=== PATIENT | female | born 1940 | race Caucasian/White ===

== ENCOUNTER 2016-08-15 06:31 | Inpatient (IN) ==
--- NOTE | 2016-08-14 21:17 | Discharge Summary ---
<Alka Pak - Last Filed: 08/15/16 13:52> - Discharge Diagnosis (1) Arthralgia of knee, left Priority: Primary Status: Acute (2) KEVIN (obstructive sleep apnea) Status: Chronic - Discharge Medications Home Medications: Aspirin Enteric Coated [Aspirin EC] 325 mg PO DAILY #21 tablet. 08/14/16 [Rx] OxyCODONE Immed Rel [Roxicodone 5 MG] 5 - 10 mg PO Q6HR PRN #40 tablet 08/14/16 [Rx] Pantoprazole Sodium [Protonix] 40 mg PO HS 08/15/16 [History] Allergies/Adverse Reactions: Allergies No Known Allergies Allergy (Verified 08/15/16 07:09) Primary care physician: Keyon Hanks Jr, MD - Patient Status Disposition: Transfer Inpatient Rehab Fac Condition: Good - Discharge Instructions Follow Up With: Alka Pak PAC [Physician Research/Program Director] - 08/25/16 10:30 am Keyon Hanks Jr, MD [Primary Care Provider] - Additional Instructions: Discharge Instructions: Total Knee Replacement Please call [facility] ([phone]), your Primary Care Physician, or report to the Emergency Room if you have any of the following symptoms: Nausea, vomiting, fever greater that 101.5, swelling, chest pain, shortness of breath, increased pain/redness/drainage/odor for your incision site, numbness/ tingling, or any other concerning symptoms. ACTIVITY:Weight-bearing as tolerated. You may progress off support (cruthches or walker) as tolerated. MEDICATIONS: Upon discharge resume your home medications. Take all the medications as prescribed. Take a stool softener if taking narcotic pain medications. Stool softeners are only effective if you drink enough fluids. Drink 6-8 glass of water or fluids a day, unless this is not allowed for another health problem. Despite using stool softeners, if you haven't had a bowel movement in 3 days, please switch to a gentle laxative. Gentle laxatives are sold over the counter. You should have a bowel movement within 24 hours, if not call the office. You will be discharged from the hospital with a prescription for pain medication. You are encouraged to decrease the use of narcotic pain medication as tolerated. Should you require a refill, please call the office. [facility] prescribes narcotic pain medication for only 4-6 weeks after surgery. If you require pain medication beyond this time periord, you may be referred to your Primary Care Physician or to the Pain Clinic for further evaluation. Plan ahead for refills on pain medication as many narcotics either need to be picked up at the office or mailed. It is best to call 48-72 hours in advance of needing a prescription refill so you don't run out of medication. To help control the post-operative pain, you may take NSAIDs (Aleve,Advil, Motrin, ibuprofen, naprosyn) or Tylenol as prescribed on the bottle in addition to the pain medication. ANTICOAGULATION (blood thinners): Continue your Aspirin, Lovenox or Coumadin as prescribed to help prevent a blood clot in the leg or in the lungs. As long as your incision remains dry and you tolerate the NSAIDs (Aleve, Advil, Motrin, ibuprofen, naprosyn), it is OK to use the NSAIDS while you are taking your anticoagulation medication. Should your incision start to drain, stop the NSAID and contact our office. Common symptoms of blood clot in the legs include: localized pain, swelling, calf tenderness, redness or discoloration of the skin. Blood clot in the lung symptoms include: shortness of breath, rapid pulse, sweating, and chest pain that worsens with deep breathing, coughing up blood, lightheadedness, feelings of anxiety. If you experience any of these symptoms notify your physician immediately, go to the emergency room, or if having trouble breathing, call 911. WOUND CARE: Leave the dressing on for 7 days. You may change the dressing if it becomes saturated greater than 50%. You can shower but not a tub bath or submerge your incision in water. Wash your hands with antibacterial soap, rinse and dry prior to any wound care. If you have miguel the visiting nurse or rehab facility can remove the stapes 10-14 days [address] surgery [address] steri- strips across the wound. Leave the steri-strips in place until they fall off on their won. You may let water from the shower run on top of the steri-stirips. If you do not have a visiting nurse or rehab facility, you will need to return to the office at 10-14 days for the miguel to be removed. FOLLOW-UP: Please follow up with your surgeon in the orthopedic clinic in 4 weeks from the day of surgery. If you have miguel that need to be removed, you will need to come back to the office in 10-14 days from the day of surgery. - Hospital Course Hospital course: Ms. Gaviria is a 75 year old female - Time Spent with Patient Total time spent providing and/or coordinating discharge services: <Delfino Church - Last Filed: 08/17/16 09:16> Date of Encounter: 08/17/16 Time of Encounter: 09:15 - Discharge Diagnosis (1) KEVIN (obstructive sleep apnea) Priority: Secondary Status: Chronic (2) Arthralgia of knee, left Priority: Primary Status: Acute Primary care physician: Keyon Hanks Jr, MD - Patient Status Functional capacity at discharge: uses cane/walker Overall status at discharge: patient is progressing back to baseline - Hospital Course Hospital course: Ms. Gaviria is a 75 year old female The patient had an uneventful postoperative course. They received antibiotics and physical therapy and were discharged in stable condition. There will follow -up in the office in 2 weeks. Aspirin DVT prophylaxis - Time Spent with Patient Total time spent providing and/or coordinating discharge services:
--- NOTE | 2016-08-15 06:41 | History & Physical Report ---
Date of Encounter: 08/15/16 Time of Encounter: 06:41 24 Hour HP Update - Instructions Instructions: If the History and Physical is less than 30 days old and was completed prior to A.M. admission and or procedure and has NOT been updated on calendar day of procedure please complete this update prior to performing procedure. - Update Patient reports changes in Medical Condition: No Changes in assessment/condition: No Changes in Medication: No Preop tests/diagnostics Reviewed: Yes Surgery Remains Indicated: Yes Consent for Planned Operative Procedure(s) Verified: Yes - Pre-Operative Checklist Preoperative Checklist Indicated: No Prophylactic Antibiotic Ordered: Yes Is VTE Prophylaxis Indicated?: Yes
[2016-08-15] MEDS ORDERED: CeFAZolin Pre 2,000 MG/100 ML 2,000 MG/100 ML BAG IVPB ONE (07:02)
[2016-08-15] MEDS ORDERED: *HR* Magnesium Sulfate 2 GM/50 ML PIGGYBACK IVPB ONE (07:07)
--- NOTE | 2016-08-15 07:14 | Anesthesia Evaluation PreOp ---
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 08/14/16 [Rx] OxyCODONE Immed Rel [Roxicodone 5 MG] 5 - 10 mg PO Q6HR PRN #40 tablet 08/14/16 [Rx] Pantoprazole Sodium [Protonix] 40 mg PO HS 08/15/16 [History] Allergies No Known Allergies Allergy (Verified 08/15/16 07:09) - Meds/Allergy Pre-op Review Medications Reviewed: Yes Allergies Reviewed: Yes Beta Blockers on Current Med List: No Anesthesia Results - Labs Laboratory Tests 08/10/16 08/10/16 08/10/16 10:49 10:49 10:49 Hgb 13.6 Hct 40.8 Plt Count 240 PT 11.0 INR 1.0 APTT 26.8 Sodium 140 Potassium 4.2 Creatinine 0.71 - Imaging EKG: pending Anesthesia Exam O2 Sat Height 1.7 m Height 1.7 m Weight 80.286 kg Weight 80.286 kg O2 Sat by Pulse Oximetry 98 Vital Signs Temp Pulse Resp BP Pulse Ox 97.9 F 73 18 136/79 98 08/15/16 06:59 08/15/16 06:59 08/15/16 06:59 08/15/16 06:59 08/15/16 06:59 Height: 1.7 Weight: 81 NPO (# of Hours): >8 - HEENT Pupil (Motor): Pupils equal, EOMI Mallampati: I Teeth: Normal Oral Opening: Greater than 3 - BOILER COVERER HELPER LOC: Oriented BOILER COVERER HELPER Motor: Normal RUE, Normal LUE, Normal RLE, Normal LLE, Normal Face BOILER COVERER HELPER Sensory: Normal: RUE, LUE, RLE, LLE, Face - Cardiac Rhythm: Regular Murmur: None - Pulmonary Breath Sounds: bilateral Clear Respiratory Effort: Symmetrical Anesthesia Assess/Plan ASA Score: 3 (age >70) Modified [place] Scale for Level of Consciousness: Cooperative, oriented, and tranquil Anesthetic Plan: General, Regional Monitoring Plan: Standard Monitors Recovery Plan: PACU
[2016-08-15] MEDS ORDERED: Ringers Solution, Lactated 1,000 ML IVC SCH ×3 (07:15→11:08)
[2016-08-15] MEDS ORDERED: CloNIDine Patch 0.1 MG PATCH (WEEKLY) TD SCH (07:15)
[2016-08-15] MEDS ORDERED: Tetracaine/PF 20 MG/2 ML AMPUL SPINA ONE (07:58)
[2016-08-15] MEDS ORDERED: ROPIVACAINE HCL/PF 0.5% 30 ML VIAL ONE (07:58)
[2016-08-15] MEDS ORDERED: *HR* Propofol 200 MG/20 ML VIAL IVP ONE (08:50)
[2016-08-15] MEDS ORDERED: *HR* FentaNYL (PF) 100 MCG/2 ML VIAL ONE (08:50)
[2016-08-15] MEDS ORDERED: *HR* Midazolam HCl 2 MG/2 ML VIAL ONE (08:50)
[2016-08-15] MEDS ORDERED: Lidocaine -MPF 2% 2 ML VIAL ONE (08:50)
[2016-08-15] MEDS ORDERED: *HR* Morphine 2 MG/ML SYRINGE IVP PRN (08:52)
[2016-08-15] MEDS ORDERED: *HR* HYDROmorphone (PF) 1 MG/ML SYRINGE IVP PRN ×2 (08:52→11:08)
--- NOTE | 2016-08-15 08:56 | Anesthesia Procedures ---
Date of Encounter: 08/15/16 Time of Encounter: 08:54 Procedures: Anesthesia - Nerve Block Procedure Date: 08/15/16 Time: 08:02 Allergies/Adv Reactions: NKA Pre-op Diagnosis: left knee arthritis Surgical Procedure: Left total knee arthroplasty Checklist: Correct Patient Identifier, Correct procedure, History checked Correct side: Left Blood Thinner: No Monitor Applied: EKG, BP, Pulse Oximetry Supplemental Oxygen via Nasal Cannula (L/min): 2 Sedation: Versed (mg): 2 Sedation: Fentanyl (mcg): 50 Indication: Post Op Analgesia Pre-op Neuro Deficits: No Block Type: Femoral Catheter placed: No Sterile Technique: Yes Ultrasound used: Yes Anatomy identified: Yes Visual spread of Local: Yes Neuro Stimulation: Yes Nerve Stimulator Range: 0.2 - 0.4 mA Blood on Needle Aspiration: No Smooth Injection of Local: Yes Pain with Injection of Local: No Prep: Chlorhexadine Needle: 22 x 50 mm Stimuplex Local: Tetracaine (20mg), Ropivacaine Volume (cc): 30 Number of Attempts: 1 Complications: None/effective block Vitals: Vital Signs Temperature 97.9 F 08/15/16 06:59 Pulse Rate 73 08/15/16 06:59 Respiratory Rate 18 08/15/16 06:59 Blood Pressure 136/79 08/15/16 06:59 O2 Sat by Pulse Oximetry 98 08/15/16 06:59 Temperature 97.9 F 08/15/16 07:19 Pulse Rate 57 08/15/16 08:25 Respiratory Rate 18 08/15/16 07:19 Blood Pressure 112/57 08/15/16 08:25 O2 Sat by Pulse Oximetry 97 08/15/16 08:25 Comments: Block ordered per dr. martins for postoperative pain relief. VSS throughout.
[2016-08-15] MEDS ORDERED: *HR* Morphine 10 MG/ML VIAL ONE (09:13)
[2016-08-15] MEDS ORDERED: Ondansetron 4 MG/2 ML VIAL ONE (09:14)
[2016-08-15] MEDS ORDERED: Dexamethasone 4 MG/ML VIAL ONE (09:14)
--- NOTE | 2016-08-15 09:15 | Orthopedic Operative Note ---
Date of procedure: 08/15/16 Pre-op diagnosis: Left knee arthritis/instability Post-op diagnosis: same Procedure: Procedure: Left Total knee replacement Estimated blood loss: 200 cc Hardware: Arthrex Femur: 8 Tibia: 6 PS insert: 12 Patella: 37 Exam Under anesthesia: Significant valgus deformity, significant varus valgus instability, possible extension 10 degrees. Procedural Notes: Grade 4 arthritic changes lateral compartment medial compartment grade 3 patellofemoral joint Operative procedure: The patient was brought to the operating room and placed on the operating room table. After general anesthesia was administered the operative knee was examined. Findings were noted in the exam under anesthesia. The operative extremity was prepped and draped in sterile surgical fashion. The patient received IV antibiotics prior to skin incision. A standard midline incision was made centered over the patella. The incision was made through the skin and subcutaneous tissue. A medial parapatellar tendon approach was performed. Care was taken to preserve tissue along the medial aspect of the patella. And to protect the patella tendon. The deep MCL was released off the medial tibia. The infra patella fat pad was excised. Knee was brought into flexion. Patient noted to have grade 4 arthritic changes medial and lateral compartments and grade 3 arthritic changes patellofemoral joint The entry hole was made for the intramedullary femoral guide. The guide was seated in 6 degrees of valgus. Anterior cut was made followed by the distal cut. The ACL the PCL the medial and the lateral menisci were excised. The tibia was subluxed forward. The entry hole was made for the intramedullary tibial guide. Guide was seated to resect 2 mm off the more abnormal side. The knee was brought into flexion the distal femur was sized to an 8. The femoral guide was seated, the anterior cut was made followed by the posterior condylar cut, followed by the chamfer cuts. The finishing guide was seated the box cut was made and the lug holes were drilled. The tibia was sized to a 6, the tibial tray was seated and prepared with the large drill followed by the fin cutter. Trial reduction revealed full extension no varus valgus instability with the appropriate 12 PS Latonya. The patella was everted and cut was made at the level of the insertion of the quadriceps and patella tendon. The patella was sized to a 37 the guide was seated and the lug holes are drilled. Trial reduction revealed excellent patella tracking. All trial components were removed all bony surfaces were irrigated. The tibia was cemented first followed by the femur. The 12 PS Latonya was seated and the knee was brought into full extension. The patella was cemented and held in place with the patellar holding clamp. After the cement had hardened, the knee sat for 2 minutes with a Betadine saline solution. The knee was then irrigated out with 2 L of pulse irrigation. The extensor mechanism was closed with #2 FiberWire suture and #2 PDS suture. The subcutaneous tissue was then irrigated and closed deep with #1 PDS suture superficially with 0 PDS suture and skin was closed with skin miguel and Dermabond. The patient was then placed in a sterile dressing and a postoperative brace extubated and transferred to recovery room in stable condition. Anesthesia: NEFTALI Surgeon: Delfino Church Saw Repairer: Alka Pak Condition: stable Disposition: PACU
[2016-08-15 10:23] LABS: Hematocrit 37.3 % (35.3-44.9); Hemoglobin 12.4 g/dL (11.5-15.4)
--- NOTE | 2016-08-15 10:28 | Electrocardiograph Report ---
[facility] Test Date: 2016-08-15 Pat Name: SIL SANTOS Department: 106 Room: Gender: F Genetic Coordinator: [facility] : 1940 Requested By: Delfino Church Order Number: [id number] Reading MD: Ari Stanford DO Measurements Intervals [employer] Rate: 58 P: 68 AK: 147 QRS: -12 QRSD: 90 T: 42 QT: 406 QTc: 402 Interpretive Statements SINUS BRADYCARDIA Electronically Signed On 08-15-16 10:26:58 EST by Ari Stanford DO
--- NOTE | 2016-08-15 10:29 | Anesthesia Evaluation Post Op ---
Date of Encounter: 08/15/16 Time of Encounter: 10:28 - Vital Signs Vital Signs: Vital Signs/O2 Sat, Most Current Temp Pulse Resp BP Pulse Ox 98.0 F 53 14 118/56 98 08/15/16 09:45 08/15/16 10:05 08/15/16 10:05 08/15/16 10:05 08/15/16 10:05 - Lungs Lungs: Clear Ascult./Percussion - Airway Airway: Non-obstructed - Cardiovascular Regular Rate - Mental Status Mental Status: Alert & Oriented, Answers Appropriately - Pain Pain Scale: 9 Pain Scale used: Numeric (1 - 10) - Nausea Vomiting Nausea Vomiting: Present (c/o nausea but does not correlate with body language and patient was able to tolerate ice chips) - Hydration Hydration: Ice chips, Has not voided - Discharge PostOp Status: Transfer Patient to floor
[2016-08-15] MEDS ORDERED: Naloxone 0.4 MG/ML INJ IVP PRN (11:08)
[2016-08-15] MEDS ORDERED: Sennosides 8.6 MG TABLET PO PRN (11:08)
[2016-08-15] MEDS ORDERED: MOM Conc 10 ML UD.LIQ PO PRN (11:08)
[2016-08-15] MEDS ORDERED: Acetaminophen 325 MG TABLET PO PRN (11:08)
[2016-08-15] MEDS ORDERED: *HR* OxyCODONE Immed Rel 5 MG TABLET PO PRN (11:08)
[2016-08-15] MEDS ORDERED: Temazepam 15 MG CAPSULE PO PRN (11:08)
[2016-08-15] MEDS: Ondansetron 4 MG/2 ML VIAL IVP PRN (11:18)
[2016-08-15] MEDS: *HR* OxyCODONE Immed Rel 5 MG TABLET PO PRN ×3 (12:21→21:38)
[2016-08-15] MEDS: *HR* Enoxaparin 30 MG/0.3 ML SYRINGE SQ SCH (16:59)
[2016-08-15] MEDS: ceFAZolin 2,000 MG in D5% in Water 100 ML IVPB SCH (17:00)
[2016-08-15] MEDS ORDERED: *HR* Enoxaparin 30 MG/0.3 ML SYRINGE SQ SCH (18:00)
[2016-08-16] MEDS: ceFAZolin 2,000 MG in D5% in Water 100 ML IVPB SCH (00:03)
[2016-08-16] MEDS: *HR* OxyCODONE Immed Rel 5 MG TABLET PO PRN ×4 (02:32→18:02)
[2016-08-16] MEDS: *HR* Enoxaparin 30 MG/0.3 ML SYRINGE SQ SCH ×2 (05:32→18:03)
[2016-08-16 06:12] LABS: Hematocrit 32.2 % (35.3-44.9)
[2016-08-16 06:30] LABS: BUN/Creatinine Ratio 21 (6-26); Blood Urea Nitrogen 15 mg/dL (7-20); Calcium 8.9 mg/dL (8.6-10.8); Carbon Dioxide 23 mEq/L (19-29); Chloride 105 mEq/L (98-109); Glucose 117 mg/dL (70-99); Osmolality,Calculated 284 (280-300); Potassium 4.3 mEq/L (3.5-4.5); Sodium 136 mEq/L (136-145); eGFR For African Americans > 60 (> 60); eGFR For Non-African Americans > 60 (> 60)
--- NOTE | 2016-08-16 06:56 | Orthopedics Progress Note ---
Date of Encounter: 08/16/16 Time of Encounter: 06:56 - Assessment and Plan (1) KEVIN (obstructive sleep apnea) Current Visit: Yes Status: Chronic (2) Arthralgia of knee, left Current Visit: Yes Status: Acute Subjective Interval history: Patient was seen this morning doing well without complaints. Afebrile vital signs stable. Operative extremity: Neurovascularly intact Dressing clean dry and intact Calves nontender Assessment and plan: Continue with postoperative care Hematocrit 32 Objective Vital signs: Vital Signs Temp Pulse Resp BP Pulse Ox 08/16/16 06:33 98.4 F 73 16 138/55 97 08/16/16 04:40 97.7 F 81 18 135/72 97 08/16/16 00:34 97.6 F 85 18 140/70 97 08/15/16 20:00 97.8 F 89 19 148/72 98 08/15/16 17:42 63 16 160/70 97 08/15/16 15:55 97.5 F L 63 16 160/70 97 08/15/16 13:42 65 16 158/68 100 08/15/16 12:42 97.5 F L 63 28 160/88 08/15/16 11:56 68 20 115/80 100 08/15/16 11:15 60 14 147/67 100 08/15/16 10:45 61 14 133/72 99 08/15/16 10:25 97.3 F L 59 16 123/56 98 08/15/16 10:15 97.3 F L 54 16 123/52 98 08/15/16 10:05 53 14 118/56 98 08/15/16 09:55 47 16 99/50 97 08/15/16 09:45 98.0 F 52 16 135/69 98 08/15/16 08:25 57 112/57 97 08/15/16 08:12 57 129/65 98 08/15/16 07:19 97.9 F 73 18 136/79 98 08/15/16 06:59 97.9 F 73 18 136/79 98 Intake and Output 08/15/16 08/15/16 08/16/16 15:59 23:59 07:59 Intake Total 100 / 100 400 / 400 Output Total 200 / 200 1650 / 1650 600 / 600 Balance -100 / -100 -1250 / -1250 -600 / -600 Intake: IV Fluids 100 / 100 100 / 100 Ancef 2,000 MG In 100 / 100 Dextrose 5% 100 ML @ 200 mls/hr IVPB Q8H ECHO Rx#: [id number] Ancef Premix 2,000 MG/100 100 / 100 ML 2,000 mg In 100 ml @ 200 mls/hr IVPB PREOP ONE Rx#:[id number] Oral 300 / 300 Output: Urine 1650 / 1650 600 / 600 Estimated Blood Loss 200 / 200 Other: # Voids 1 - Labs CBC & BMP: 08/16/16 05:34 08/16/16 05:34 Labs: Abnormal lab results Hgb 11.0 g/dL (11.5-15.4) L 08/16/16 05:34 Hct 32.2 % (35.3-44.9) L 08/16/16 05:34 Glucose 117 mg/dL (70-99) H 08/16/16 05:34 - VTE Documentation of Mechanical Device: Venous foot pump, device Consult Discharge Plan - Plan Referrals: Keyon Hanks Jr, MD [Primary Care Provider] -
[2016-08-16] MEDS: Ondansetron 4 MG/2 ML VIAL IVP PRN (09:03)
[2016-08-17] MEDS: *HR* OxyCODONE Immed Rel 5 MG TABLET PO PRN ×2 (04:48→08:56)
[2016-08-17] MEDS: *HR* Enoxaparin 30 MG/0.3 ML SYRINGE SQ SCH (04:48)
[2016-08-17 06:40] LABS: Hematocrit 29.8 % (35.3-44.9); Hemoglobin 10.2 g/dL (11.5-15.4)
[2016-08-17 06:59] LABS: BUN/Creatinine Ratio 13 (6-26); Blood Urea Nitrogen 8 mg/dL (7-20); Carbon Dioxide 23 mEq/L (19-29); Chloride 103 mEq/L (98-109); Glucose 117 mg/dL (70-99); Osmolality,Calculated 279 (280-300); Potassium 4.1 mEq/L (3.5-4.5); Sodium 135 mEq/L (136-145); eGFR For African Americans > 60 (> 60); eGFR For Non-African Americans > 60 (> 60)
[2016-08-17 07:33] VITALS: BP 147/74
--- NOTE | 2016-08-17 09:17 | Orthopedics Progress Note ---
Date of Encounter: 08/17/16 Time of Encounter: 09:16 - Assessment and Plan (1) KEVIN (obstructive sleep apnea) Current Visit: Yes Status: Chronic (2) Arthralgia of knee, left Current Visit: Yes Status: Acute Subjective Interval history: Patient was seen this morning doing well without complaints. Afebrile vital signs stable. Operative extremity: Neurovascularly intact Dressing clean dry and intact Calves nontender Assessment and plan: Continue with postoperative care hemoglobin 10.2 discharged today Objective Vital signs: Vital Signs Temp Pulse Resp BP Pulse Ox 08/17/16 07:30 98.2 F 85 16 147/74 93 L 08/17/16 01:23 98.2 F 91 16 176/72 94 L 08/16/16 19:18 98.7 F 85 16 172/76 96 08/16/16 15:22 98.3 F 88 18 171/69 97 08/16/16 10:56 98.4 F 82 16 169/75 97 Intake and Output 08/16/16 08/17/16 08/17/16 23:59 07:59 15:59 Output Total 600 / 600 400 / 400 Balance -600 / -600 -400 / -400 Output: Urine 600 / 600 400 / 400 Other: # Voids 1 - Labs CBC & BMP: 08/17/16 06:25 08/17/16 06:25 Labs: Abnormal lab results Hgb 10.2 g/dL (11.5-15.4) L 08/17/16 06:25 Hct 29.8 % (35.3-44.9) L 08/17/16 06:25 Sodium 135 mEq/L (136-145) L 08/17/16 06:25 Glucose 117 mg/dL (70-99) H 08/17/16 06:25 Calculated Osmolality 279 (280-300) L 08/17/16 06:25 - VTE Documentation of Mechanical Device: Venous foot pump, device Consult Discharge Plan - Plan Additional Instructions: Discharge Instructions: Total Knee Replacement Please call [facility] ([phone]), your Primary Care Physician, or report to the Emergency Room if you have any of the following symptoms: Nausea, vomiting, fever greater that 101.5, swelling, chest pain, shortness of breath, increased pain/redness/drainage/odor for your incision site, numbness/ tingling, or any other concerning symptoms. ACTIVITY:Weight-bearing as tolerated. You may progress off support (cruthches or walker) as tolerated. MEDICATIONS: Upon discharge resume your home medications. Take all the medications as prescribed. Take a stool softener if taking narcotic pain medications. Stool softeners are only effective if you drink enough fluids. Drink 6-8 glass of water or fluids a day, unless this is not allowed for another health problem. Despite using stool softeners, if you haven't had a bowel movement in 3 days, please switch to a gentle laxative. Gentle laxatives are sold over the counter. You should have a bowel movement within 24 hours, if not call the office. You will be discharged from the hospital with a prescription for pain medication. You are encouraged to decrease the use of narcotic pain medication as tolerated. Should you require a refill, please call the office. [facility] prescribes narcotic pain medication for only 4-6 weeks after surgery. If you require pain medication beyond this time periord, you may be referred to your Primary Care Physician or to the Pain Clinic for further evaluation. Plan ahead for refills on pain medication as many narcotics either need to be picked up at the office or mailed. It is best to call 48-72 hours in advance of needing a prescription refill so you don't run out of medication. To help control the post-operative pain, you may take NSAIDs (Aleve,Advil, Motrin, ibuprofen, naprosyn) or Tylenol as prescribed on the bottle in addition to the pain medication. ANTICOAGULATION (blood thinners): Continue your Aspirin, Lovenox or Coumadin as prescribed to help prevent a blood clot in the leg or in the lungs. As long as your incision remains dry and you tolerate the NSAIDs (Aleve, Advil, Motrin, ibuprofen, naprosyn), it is OK to use the NSAIDS while you are taking your anticoagulation medication. Should your incision start to drain, stop the NSAID and contact our office. Common symptoms of blood clot in the legs include: localized pain, swelling, calf tenderness, redness or discoloration of the skin. Blood clot in the lung symptoms include: shortness of breath, rapid pulse, sweating, and chest pain that worsens with deep breathing, coughing up blood, lightheadedness, feelings of anxiety. If you experience any of these symptoms notify your physician immediately, go to the emergency room, or if having trouble breathing, call 911. WOUND CARE: Leave the dressing on for 7 days. You may change the dressing if it becomes saturated greater than 50%. You can shower but not a tub bath or submerge your incision in water. Wash your hands with antibacterial soap, rinse and dry prior to any wound care. If you have miguel the visiting nurse or rehab facility can remove the stapes 10-14 days [address] surgery [address] steri- strips across the wound. Leave the steri-strips in place until they fall off on their won. You may let water from the shower run on top of the steri-stirips. If you do not have a visiting nurse or rehab facility, you will need to return to the office at 10-14 days for the miguel to be removed. FOLLOW-UP: Please follow up with your surgeon in the orthopedic clinic in 4 weeks from the day of surgery. If you have miguel that need to be removed, you will need to come back to the office in 10-14 days from the day of surgery. Referrals: Alka Pak PAC [Physician Beater Dumper] - 08/25/16 10:30 am Keyon Hanks Jr, MD [Primary Care Provider] -
== END 2016-08-17 10:55 | DRG 470 ==
LOC: SAMDAY 06:31 → 3NENU 10:57
PROVIDERS: ADMIT Orthopaedic Surgery; ATTEND Orthopaedic Surgery

== ENCOUNTER 2017-05-16 16:29 | Inpatient (IN) ==
[2017-05-16] MEDS ORDERED: Ipratropium/Albuterol Neb 3 ML IH ONE (16:49)
--- NOTE | 2017-05-16 16:59 | Emergency Department Note ---
Disposition Clinical Impression: Difficulty breathing Disposition: Still a Patient Condition: Fair Referrals: Keyon Hanks Jr, MD [Primary Care Provider] - Forms: ED Satisfaction Letter Time of Disposition: 18:56 General Adult HPI - General Chief complaint: ED Shortness of Breath/Dyspnea Stated complaint: LLUVIA, panic attack Time Seen by Provider: 05/16/17 16:41 Source: patient Mode of arrival: wheelchair Limitations: no limitations Nursing Notes Reviewed: Yes Vital Signs Reviewed: Yes - History of Present Illness HPI Narrative: 76-year-old female sent over from her primary care physician for difficulty in breathing. Patient states she has been having upper respiratory infection symptoms including cough and congestion since Monday. Her cough is progressively been getting worse. She went to her primary care physician for a workup today and has been having coughing spells. Primary care physician was concerned because during these coughing spells the oxygen saturation would drop in the mid 80s. Patient states she does have a long-standing history of chronic bronchitis. In the room she is able to answer questions but becomes winded easily due to coughing spells. She is in mild distress but oxygen saturations upper 90s to 100% with good waveform. Patient denies fever, chest pain or any other systemic symptoms at this time. Patient does states she has minimal flank pain due to coughing. Pain Scale: 0 - Related Data Home Medications Medication Instructions Recorded Confirmed Pantoprazole Sodium [Protonix] 40 mg PO HS 08/15/16 08/15/16 Previous Rx's Medication Instructions Recorded Aspirin Enteric Coated [Aspirin EC] 325 mg PO DAILY #21 tablet. 08/14/16 OxyCODONE Immed Rel [Roxicodone 5 5 - 10 mg PO Q6HR PRN #40 tablet 08/14/16 MG] Allergies Allergy/AdvReac Type Severity Reaction Status Date / Time No Known Allergies Allergy Verified 05/16/17 16:35 All systems ED: reviewed and negative except as stated. Constitutional: Denies: fever, chills, weakness Eyes: Reports: as per HPI Cardiovascular: Denies: chest pain, palpitations, dyspnea on exertion Respiratory: Reports: cough, dyspnea, wheezes. Denies: hemoptysis Gastrointestinal: Denies: abdominal pain, nausea, vomiting Genitourinary: Reports: as per HPI Musculoskeletal: Reports: as per HPI Integumentary: Denies: rash, lesions Neurological: Denies: headache, weakness, numbness, paresthesias Psychiatric: Reports: as per HPI Endocrine: Reports: as per HPI Hematological/Lymphatic: Reports: as per HPI Past Medical History - Past Medical History Attestation: Yes The following information was validated with the patient. Medical history: Reports: cancer Surgical history: Reports: appendectomy Psychiatric history: Reports: no psych history DIRECTOR BUSINESS INTELLIGENCE history: Reports: no DIRECTOR BUSINESS INTELLIGENCE history - Social History Smoking Status: Never smoker Smokeless Tobacco Status: No Alcohol use: Reports: none Drug use: Reports: none Physical Exam - General Limitations: no limitations General appearance: alert, in no apparent distress - Head Head exam: atraumatic, normocephalic, normal inspection - Eye Eye exam: Present: normal appearance - ENT ENT exam: normal oropharynx, mucous membranes moist - Chest Chest inspection: Present: normal inspection, symmetric chest wall rise. Absent : tenderness - Respiratory Respiratory exam: Present: wheezes. Absent: stridor, accessory muscle use - Cardiovascular Cardiovascular exam: Present: regular rate, normal rhythm, normal heart sounds - Abdominal Exam Abdominal exam: Present: soft, Non-Tender. Absent: distention, guarding, rebound - Extremities Exam Extremities exam: Present: normal inspection, full ROM - Neurological Exam Neurological exam: Present: alert, oriented X3 - Psychiatric Psychiatric exam: Present: normal affect, normal mood - Skin Skin exam: Present: warm, intact Course Course Narrative: 76-year-old female transferred from her primary care physician's office for concern of respiratory distress. Patient has a long-standing history of chronic bronchitis. While in the room oxygen saturations are in upper 90s to 100% with good waveform. All coughing oxygen saturation does decrease but does not show good waveform therefore we do not believe that these are accurate readings. We will provide the patient with 3 [id number] DuoNeb and then perform a chest x-ray. Disposition pending on results and patient's response to treatment. - Reevaluation(s) Reevaluation #1: After 3 [id number] duo nebs patient is still having oxygen saturations with good waveforms at 90%. Increased shortness of breath at this time. We will obtain basic lab work and a d-dimer at this time along with EKG. Time: 17:40 Reevaluation #2: Patient's d-dimer elevated at approximately 1400. We will complete a CTA of the chest this time. Concern that this patient will need to be admitted. Patient care now to be transferred to with resident Dr. Jacob Time: 18:56 Vital Signs Temperature 97.4 F L 05/16/17 16:35 Pulse Rate 93 05/16/17 16:35 Respiratory Rate 26 05/16/17 16:35 Blood Pressure 128/63 05/16/17 16:35 O2 Sat by Pulse Oximetry 94 05/16/17 16:35 Temperature 97.4 F L 05/16/17 16:35 Pulse Rate 91 05/16/17 18:38 Respiratory Rate 28 05/16/17 18:38 Blood Pressure 128/63 05/16/17 16:35 O2 Sat by Pulse Oximetry 100 05/16/17 18:38 Oxygen Delivery Oxygen Delivery Oximizer Medical Decision Making - Lab Data Result diagrams: 05/16/17 18:00 05/16/17 18:00 Lab Results 05/16/17 05/16/17 05/16/17 Range/Units 18:00 18:00 18:00 WBC 11.6 H (4.3-11.1) K/mcL RBC 4.63 (3.82-4.97) M/mcL Hgb 13.8 (11.5-15.4) g/dL Hct 41.1 (35.3-44.9) % MCV 88.8 (83.0-100.0) fL MCH 29.8 (28.0-33.3) pg MCHC 33.6 (31.6-35.5) g/dL RDW 13.2 (11.5-14.5) % Plt Count 258 (140-400) K/mcL MPV 12.0 (9.4-12.4) fL Immature Gran % 0.4 (0-4) % Seg Neutrophils % 67.0 % Lymphocytes % 23.4 % Monocytes % 7.8 % Eosinophils % 1.0 % Basophils % 0.4 % Neutrophils # 7.8 (1.6-8.9) K/mcL Lymphocytes # 2.7 (0.6-4.6) K/mcL Monocytes # 0.9 (0.0-1.3) K/mcL Eosinophils # 0.1 (0.0-0.6) K/mcL Basophils # 0.1 (0.0-0.2) K/mcL D-Dimer 1318 H (0-500) ng/mLFEU Sodium 140 (136-145) mEq/L Potassium 3.3 L (3.5-4.5) mEq/L Chloride 108 (98-109) mEq/L Carbon Dioxide 17 L (19-29) mEq/L BUN 17 (7-20) mg/dL Creatinine 0.86 (0.57-1.11) mg/dL Est GFR ( Amer) > 60 (> 60) Est GFR (Non-Af Amer) > 60 (> 60) BUN/Creatinine Ratio 20 (6-26) Glucose 123 H (70-99) mg/dL Calculated Osmolality 293 (280-300) Lactic Acid (0.5-2.2) mmol/L Calcium 9.8 (8.6-10.8) mg/dL Troponin I (0-0.03) ng/mL 05/16/17 05/16/17 Range/Units 18:00 18:00 WBC (4.3-11.1) K/mcL RBC (3.82-4.97) M/mcL Hgb (11.5-15.4) g/dL Hct (35.3-44.9) % MCV (83.0-100.0) fL MCH (28.0-33.3) pg MCHC (31.6-35.5) g/dL RDW (11.5-14.5) % Plt Count (140-400) K/mcL MPV (9.4-12.4) fL Immature Gran % (0-4) % Seg Neutrophils % % Lymphocytes % % Monocytes % % Eosinophils % % Basophils % % Neutrophils # (1.6-8.9) K/mcL Lymphocytes # (0.6-4.6) K/mcL Monocytes # (0.0-1.3) K/mcL Eosinophils # (0.0-0.6) K/mcL Basophils # (0.0-0.2) K/mcL D-Dimer (0-500) ng/mLFEU Sodium (136-145) mEq/L Potassium (3.5-4.5) mEq/L Chloride (98-109) mEq/L Carbon Dioxide (19-29) mEq/L BUN (7-20) mg/dL Creatinine (0.57-1.11) mg/dL Est GFR ( Amer) (> 60) Est GFR (Non-Af Amer) (> 60) BUN/Creatinine Ratio (6-26) Glucose (70-99) mg/dL Calculated Osmolality (280-300) Lactic Acid 3.9 H (0.5-2.2) mmol/L Calcium (8.6-10.8) mg/dL Troponin I 0.00 (0-0.03) ng/mL Attestation Statement - Attestation Attestation: I, Rojas Barber, examined this patient and my medical decision-making was reviewed with the BUILDING MOVER/PA/Advanced Practice Nurse/Resident Physician. I agree with the documented findings, disposition and treatment plan as described except to the extent set forth below. 76-year-old female presents to the emergency department with concerns of difficulty in breathing and cough. Patient states symptoms are worsening over the past few days. Patient denies chest pain, syncope, palpitations. Pt states she becomes lightheaded with coughing. PCP stated she became hypoxic during one of her coughing episodes. Patient did become hypoxic at one point during her stay in the emergency Department however she did rebound her O2 saturation to 95% after coughing. Labs were ordered to evaluate for her dyspnea which showed an elevated d-dimer. CTA is pending at the end of my shift.
[2017-05-16] MEDS: Benzonatate 100 MG CAPSULE PO PRN (17:55)
[2017-05-16] MEDS ORDERED: *HR* LORazepam 2 MG/ML VIAL IVP ONE (18:14)
[2017-05-16 18:16] LABS: Basophils # 0.1 K/mcL (0.0-0.2); Basophils % 0.4 %; Eosinophils # 0.1 K/mcL (0.0-0.6); Hematocrit 41.1 % (35.3-44.9); Hemoglobin 13.8 g/dL (11.5-15.4); Immature Granulocytes % 0.4 % (0-4); Lymphocytes # 2.7 K/mcL (0.6-4.6); Lymphocytes % 23.4 %; Mean Corpuscular HGB Conc 33.6 g/dL (31.6-35.5); Mean Corpuscular Hemoglobin 29.8 pg (28.0-33.3); Mean Corpuscular Volume 88.8 fL (83.0-100.0); Monocytes # 0.9 K/mcL (0.0-1.3); Monocytes % 7.8 %; Neutrophils # 7.8 K/mcL (1.6-8.9); Platelet Count 258 K/mcL (140-400); Red Blood Count 4.63 M/mcL (3.82-4.97); Red Cell Distribution Width 13.2 % (11.5-14.5)
[2017-05-16 18:21] LABS: BUN/Creatinine Ratio 20 (6-26); Blood Urea Nitrogen 17 mg/dL (7-20); Calcium 9.8 mg/dL (8.6-10.8); Carbon Dioxide 17 mEq/L (19-29); Chloride 108 mEq/L (98-109); Glucose 123 mg/dL (70-99); Osmolality,Calculated 293 (280-300); Potassium 3.3 mEq/L (3.5-4.5); Sodium 140 mEq/L (136-145); eGFR For African Americans > 60 (> 60); eGFR For Non-African Americans > 60 (> 60)
[2017-05-16] MEDS ORDERED: methylPREDNISolone 125 MG/2 ML VIAL IVP ONE (18:36)
--- NOTE | 2017-05-16 19:55 | Emergency Department Note ---
Disposition Clinical Impression: Difficulty breathing, Hypoxemia Disposition: Still a Patient Condition: Fair Referrals: Keyon Hanks Jr, MD [Primary Care Provider] - Forms: ED Satisfaction Letter Time of Disposition: 20:31 SOB HPI - General Chief Complaint: ED Shortness of Breath/Dyspnea Stated Complaint: LLUVIA, panic attack Time Seen by Provider: 05/16/17 16:41 Source: patient Mode of arrival: wheelchair Limitations: no limitations - Related Data Home Medications Medication Instructions Recorded Confirmed Pantoprazole Sodium [Protonix] 40 mg PO HS 08/15/16 08/15/16 Previous Rx's Medication Instructions Recorded Aspirin Enteric Coated [Aspirin EC] 325 mg PO DAILY #21 tablet. 08/14/16 OxyCODONE Immed Rel [Roxicodone 5 5 - 10 mg PO Q6HR PRN #40 tablet 08/14/16 MG] Allergies Allergy/AdvReac Type Severity Reaction Status Date / Time No Known Allergies Allergy Verified 05/16/17 16:35 Constitutional: Denies: fever, chills, weakness Eyes: Reports: as per HPI Cardiovascular: Denies: chest pain, palpitations, dyspnea on exertion Respiratory: Reports: cough, dyspnea, wheezes. Denies: hemoptysis Gastrointestinal: Denies: abdominal pain, nausea, vomiting Genitourinary: Reports: as per HPI Musculoskeletal: Reports: as per HPI Integumentary: Denies: rash, lesions Neurological: Denies: headache, weakness, numbness, paresthesias Psychiatric: Reports: as per HPI Endocrine: Reports: as per HPI Hematological/Lymphatic: Reports: as per HPI Past Medical History - Past Medical History Medical history: Reports: cancer Surgical history: Reports: appendectomy Psychiatric history: Reports: no psych history CLINICAL LABORATORY TECHNOLOGIST history: Reports: no CLINICAL LABORATORY TECHNOLOGIST history - Social History Smoking Status: Never smoker Smokeless Tobacco Status: No Alcohol use: Reports: none Drug use: Reports: none Physical Exam - General Limitations: no limitations General appearance: alert, in no apparent distress Course Course Narrative: Assumed care from Dr. Wing. Patient with one-week history of worsening cough, difficulty breathing. Cardiopulmonary workup was initiated here. She does have a mild leukocytosis of 11 as well as mild hypokalemia of 3.3. We will replace this with 40 mEq potassium chloride. Patient's d-dimer was initially elevated and a CTA of the chest was done. No acute abnormalities were found. Since patient oxygen saturation desaturated into the lower 80s with ambulation, we will go ahead and admit for difficulty breathing as well as hypoxemia. Also check for pertussis titer. - Reevaluation(s) Reevaluation #1: I discussed patient with hospitalist who has accepted patient for admission. He would like blood cultures as well as ABG and Levaquin started. Time: 20:31 Vital Signs Temperature 97.4 F L 05/16/17 16:35 Pulse Rate 93 05/16/17 16:35 Respiratory Rate 26 05/16/17 16:35 Blood Pressure 128/63 05/16/17 16:35 O2 Sat by Pulse Oximetry 94 05/16/17 16:35 Temperature 97.4 F L 05/16/17 16:35 Pulse Rate 97 05/16/17 19:40 Respiratory Rate 17 05/16/17 19:40 Blood Pressure 163/86 05/16/17 19:40 O2 Sat by Pulse Oximetry 100 05/16/17 19:40 Oxygen Delivery Oxygen Delivery Nasal Cannula Shortness of Breath/Dyspnea - Medical Records Medical records reviewed: Yes I reviewed the patient's medical records. - Lab Data Lab results reviewed: Yes I reviewed the patient's lab results. Result diagrams: 05/16/17 18:00 05/16/17 18:00 Lab Results 05/16/17 05/16/17 05/16/17 Range/Units 18:00 18:00 18:00 WBC 11.6 H (4.3-11.1) K/mcL RBC 4.63 (3.82-4.97) M/mcL Hgb 13.8 (11.5-15.4) g/dL Hct 41.1 (35.3-44.9) % MCV 88.8 (83.0-100.0) fL MCH 29.8 (28.0-33.3) pg MCHC 33.6 (31.6-35.5) g/dL RDW 13.2 (11.5-14.5) % Plt Count 258 (140-400) K/mcL MPV 12.0 (9.4-12.4) fL Immature Gran % 0.4 (0-4) % Seg Neutrophils % 67.0 % Lymphocytes % 23.4 % Monocytes % 7.8 % Eosinophils % 1.0 % Basophils % 0.4 % Neutrophils # 7.8 (1.6-8.9) K/mcL Lymphocytes # 2.7 (0.6-4.6) K/mcL Monocytes # 0.9 (0.0-1.3) K/mcL Eosinophils # 0.1 (0.0-0.6) K/mcL Basophils # 0.1 (0.0-0.2) K/mcL D-Dimer 1318 H (0-500) ng/mLFEU Sodium 140 (136-145) mEq/L Potassium 3.3 L (3.5-4.5) mEq/L Chloride 108 (98-109) mEq/L Carbon Dioxide 17 L (19-29) mEq/L BUN 17 (7-20) mg/dL Creatinine 0.86 (0.57-1.11) mg/dL Est GFR ( Amer) > 60 (> 60) Est GFR (Non-Af Amer) > 60 (> 60) BUN/Creatinine Ratio 20 (6-26) Glucose 123 H (70-99) mg/dL Calculated Osmolality 293 (280-300) Lactic Acid (0.5-2.2) mmol/L Calcium 9.8 (8.6-10.8) mg/dL Troponin I (0-0.03) ng/mL 05/16/17 05/16/17 05/16/17 Range/Units 18:00 18:00 19:42 WBC (4.3-11.1) K/mcL RBC (3.82-4.97) M/mcL Hgb (11.5-15.4) g/dL Hct (35.3-44.9) % MCV (83.0-100.0) fL MCH (28.0-33.3) pg MCHC (31.6-35.5) g/dL RDW (11.5-14.5) % Plt Count (140-400) K/mcL MPV (9.4-12.4) fL Immature Gran % (0-4) % Seg Neutrophils % % Lymphocytes % % Monocytes % % Eosinophils % % Basophils % % Neutrophils # (1.6-8.9) K/mcL Lymphocytes # (0.6-4.6) K/mcL Monocytes # (0.0-1.3) K/mcL Eosinophils # (0.0-0.6) K/mcL Basophils # (0.0-0.2) K/mcL D-Dimer (0-500) ng/mLFEU Sodium (136-145) mEq/L Potassium (3.5-4.5) mEq/L Chloride (98-109) mEq/L Carbon Dioxide (19-29) mEq/L BUN (7-20) mg/dL Creatinine (0.57-1.11) mg/dL Est GFR ( Amer) (> 60) Est GFR (Non-Af Amer) (> 60) BUN/Creatinine Ratio (6-26) Glucose (70-99) mg/dL Calculated Osmolality (280-300) Lactic Acid 3.9 H 2.5 H (0.5-2.2) mmol/L Calcium (8.6-10.8) mg/dL Troponin I 0.00 (0-0.03) ng/mL - Radiology Data Radiology results reviewed: Yes I reviewed the patient's radiology results. Chest X-Ray 05/16/17 16:49 IMPRESSION: No acute process. D/ / Rom Jarvis MD / Rom Jarvis MD Interpreting Provider: Rom Jarvis MD Chest CTA 05/16/17 18:37 IMPRESSION: 1. No evidence of pulmonary embolus or acute cardiopulmonary abnormality. 2. Moderate hiatal hernia. D/ / Panda Martinez MD / Panda Martinez MD Interpreting Provider: Panda Martinez MD
--- NOTE | 2017-05-16 20:03 | Emergency Department Note ---
START Narrative - START START: I examined this patient and my medical decision-making was reviewed with the Resident Physician. I agree with the documented findings, disposition and treatment plan as described except to the extent set forth below. 76 year old female presnts with hypoxia and bronchitic cough. I accpeted sign out from day team (Sunil). Hu states that she was at the doctors office today and had an acute episode of diffficulty in breathing and felt like she couldnt get enough oxygen .Denies fevers. She states she had a minimal productive cough and that she does onot have a history of COPD or asthma and does not wae suppplemental oxygen at home. She has been experiencing increased exertional dyspnea. CTA (-) PE. We will admit for hypoxiz, bronchitis. and treat with breathing treamtments. REsident gerard will admit to medicine.
[2017-05-16] MEDS ORDERED: Levofloxacin 500 MG/100 ML 500 MG/100 ML BAG IVPB ONE (20:19)
[2017-05-16 20:58] LABS: ABG Base Excess -3 mEq/L (-2 to 3); ABG HCO3 20 mEq/L (21-27); ABG Oxygen Saturation 91 % (95-98); ABG PCO2 29 mmHg (35-45); ABG PH 7.44 pH Units (7.32-7.45); ABG PO2 57 mmHg (85-104); ABG TCO2 21 mEq/L (20-26)
[2017-05-16 23:43] LABS: Adenovirus Not Detected (Not Detect); Bordetella Pertussis Not Detected (Not Detect); Chlamydophila pneumoniae Not Detected (Not Detect); Coronavirus 229E Not Detected (Not Detect); Coronavirus HKU1 Not Detected (Not Detect); Coronavirus NL63 Not Detected (Not Detect); Coronavirus OC43 Not Detected (Not Detect); Human Metapneumovirus Not Detected (Not Detect); Human Rhinovirus/Enterovirus Not Detected (Not Detect); Influenza A Subtype 2009 H1 Not Detected (Not Detect); Influenza A Untypeable Not Detected (Not Detect); Influenza B Not Detected (Not Detect); Mycoplasma pneumoniae Not Detected (Not Detect); Parainfluenza Virus 1 Not Detected (Not Detect); Parainfluenza Virus 2 Not Detected (Not Detect); Parainfluenza Virus 3 Not Detected (Not Detect); Parainfluenza Virus 4 Not Detected (Not Detect); Respiratory Syncytial Virus Not Detected (Not Detect)
[2017-05-17] MEDS ORDERED: Albuterol 2.5 MG/3 ML NEBULIZER IH PRN (00:27)
[2017-05-17] MEDS ORDERED: 0.9 % Sodium Chloride 1,000 ML IVC SCH (00:45)
[2017-05-17] MEDS: Benzonatate 100 MG CAPSULE PO PRN (00:56)
[2017-05-17 01:08] LABS: Alanine Aminotransferase 15 Units/L (0-55); Albumin 3.5 g/dL (3.5-5.0); Albumin/Globulin Ratio 0.9 (1.1-2.2); Alkaline Phosphatase 105 Units/L (38-126); Aspartate Amino Transferase 15 Units/L (5-34); BUN/Creatinine Ratio 18 (6-26); Bilirubin,Total 0.4 mg/dL (0.2-1.2); Blood Urea Nitrogen 15 mg/dL (7-20); Calcium 9.2 mg/dL (8.6-10.8); Carbon Dioxide 19 mEq/L (19-29); Chloride 106 mEq/L (98-109); Globulin 3.8 g/dL (2.4-3.5); Glucose 190 mg/dL (70-99); Osmolality,Calculated 288 (280-300); Sodium 136 mEq/L (136-145); Total Protein 7.3 g/dL (6.0-8.3); eGFR For African Americans > 60 (> 60); eGFR For Non-African Americans > 60 (> 60)
[2017-05-17 01:10] LABS: Potassium 4.5 mEq/L (3.5-4.5)
--- NOTE | 2017-05-17 02:04 | Internal Med History&Physical ---
<Russ Palmer - Last Filed: 05/17/17 02:02> Date of Encounter: 05/17/17 Time of Encounter: 00:15 Assessment and Plan (1) Bronchitis Current visit: Yes Status: Acute Patient has a known history of chronic bronchitis. Patient's current condition is likely due to acute on chronic bronchitis. -Levaquin 750 by mouth daily. -Albuterol every 6 when necessary, DuoNebs as needed, Solu-Medrol 40mg every 12 hours. -Continue oxygen. -0.9 normal saline 100 mL per hour. -Continue to monitor vital signs. (2) Difficulty breathing Current visit: Yes Status: Acute Patient is difficulty breathing is most prominent when her coughing spells at all. -Patient states that her difficulty breathing did improve with the administration of oxygen. -Solu-Medrol 40 every 12, DuoNeb as needed, albuterol every 6 when necessary. (3) Hypoxemia Current visit: Yes Status: Acute When patient's respiratory status distress first started, visions oxygen was in the 80s. -Oxygen saturation improved upon administration of oxygen into the upper 90s. -Continue oxygen. -Repeat labs in the morning. (4) Arthralgia of knee, left Current visit: No Status: Acute (5) KEVIN (obstructive sleep apnea) Current visit: No Status: Chronic (6) DVT prophylaxis Current visit: Yes Status: Acute Heparin for DVT prophylaxis. Internal Medicine - H&P: HPI Chief complaint: Shortness of breath Admitted From: Home History of present illness: Ms. Gaviria is a 76 year old female with a past medical history of arthritis and chronic bronchitis who presented to the hospital with a chief complaint of shortness of breath. Patient stated that her shortness of breath began last Monday. She describes her symptoms as a cough with congestion that is worse with exertion. Her cough has been progressively getting worse since Monday. Patient went to her primary care doctor for a workup, and primary care doctor was concerned about her oxygen saturation levels, which were in the 80s. Patient states that her chronic bronchitis has given her coughing spells in the past, although she has never experienced anything like this before. Denies having a history of smoking. She states that sometimes when she coughs very hard, she becomes lightheaded. She denies having any recent sick contacts. She denies sputum production, fever, chills, GI distress, chest pain, or pain on inspiration. Past Med Surg Social Fam HX - Past Medical History Medical history: arthritis, cancer, GERD Psychiatric history: no psych history - Past Surgical History Surgical History: appendectomy, breast surgery, cholecystectomy - Social History Smoking Status: Never smoker Smokeless Tobacco Status: No Alcohol use: none Drug use: none - Family History Father Hx Family Cancer: Yes Mother Name: Princess Duncan Hx Family Cardiac Disorders: Yes (pacemaker) Hx Family Respiratory Disorders: Yes (Prone to respiratory infectoins) Hx Family Cancer: Yes (breast, uturine, possible lung) Hx Family GI Disorders: Yes (Gall Bladder removed) Hx Family Endocrine Disorder: Yes (Borderline diabetic) Hx Family Musculoskeletal Disorders: Yes (Arthritis) Hx Family Neuromuscular Disorders: No Hx Family Neurologic Disorders: No Hx Family HEENT Disorders: Yes (Sinus infections) Hx Family Autoimmune Disorders: No Hx Family Reproductive Disorders: Yes (misscarage) Hx Family Psychosocial Disorders: No Internal Medicine - H&P: Meds Pantoprazole Sodium [Protonix] 40 mg PO HS 08/15/16 [History] Gabapentin [Neurontin] 300 mg PO TID 05/16/17 [History] 3 Allergy/AdvReac Type Severity Reaction Status Date / Time No Known Allergies Allergy Verified 05/16/17 16:35 All Systems PM: A 10-system review of systems was performed and is negative for pertinent findings except as documented above in the HPI. - Constitutional Constitutional: no chills, no fever(s), no night sweats - EENT Nose, mouth and throat: no dysphagia, no nasal discharge - Cardiovascular Cardiovascular ROS IM: dyspnea, no chest pain, no palpitations, no syncope - Respiratory Respiratory: cough, dyspnea, no wheezing, no pain on inspiration, no excessive phlegm production, no change in phlegm color - Constitutional Vitals: Temp Pulse Resp BP Pulse Ox 97.8 F 80 16 130/71 97 05/17/17 00:07 05/17/17 00:07 05/17/17 00:07 05/17/17 00:07 05/17/17 00:07 - Head Head exam: Present: normal inspection - Neck Neck exam general surgery: Present: supple, trachea midline. Absent: lymphadenopathy - Respiratory Respiratory exam: Present: rales, rhonchi. Absent: wheezes - Cardiovascular Cardiovascular exam: Present: RRR, +S1, +S2. Absent: diastolic murmur, gallop, rubs, systolic murmur - Skin Skin exam: Present: dry, intact Internal Med - H&P Results - Labs CBC & Chem 7: 05/16/17 18:00 05/17/17 00:47 Labs: BMP 05/17/17 00:47 Sodium 136 Potassium 4.5 D Chloride 106 Carbon Dioxide 19 BUN 15 Creatinine 0.85 Glucose 190 H Calcium 9.2 Liver Function 05/17/17 Range/Units 00:47 Total Bilirubin 0.4 (0.2-1.2) mg/dL AST 15 (5-34) Units/L ALT 15 (0-55) Units/L Alkaline Phosphatase 105 (38-126) Units/L Albumin 3.5 (3.5-5.0) g/dL - ABG Interpretation ABG results: 05/16/17 20:55 ABG pH 7.44 ABG pCO2 29 L ABG pO2 57 L ABG HCO3 20 L ABG Total CO2 21 ABG O2 Saturation 91 L ABG Base Excess -3 L <Danie Rivas - Last Filed: 05/17/17 03:49> Date of Encounter: 05/17/17 Time of Encounter: 03:00 - Constitutional Constitutional: no chills, no fever(s) - EENT Eyes: no blurry vision, no change in vision Ears: no ear pain, no tinnitus Nose, mouth and throat: nasal congestion, no sinus pressure, no sore throat - Cardiovascular Cardiovascular ROS IM: dyspnea, dyspnea on exertion, no chest pain, no edema - Respiratory Respiratory: cough, dyspnea, no hemoptysis, no excessive phlegm production, no change in phlegm color, no pain with cough - Gastrointestinal Gastrointestinal: no abdominal pain, no diarrhea, no nausea, no vomiting - Genitourinary Genitourinary: no dysuria, no flank pain - Musculoskeletal Musculoskeletal ROS IM: arthralgias, no back pain - Integumentary Integumentary IM: no rash, no jaundice - Neurological Neurological ROS: no focal weakness, no frequent falls, no headache(s) - Psychiatric Psychiatric: no anxiety, no depression - Endocrine Endocrine IM: no polydipsia, no polyuria - Hematologic/Lymphatic Hematologic/Lymphatic: no easy bruising, no lymphadenopathy - Allergic/Immunologic Allergic/Immunologic: wheezing, no GI upset with certain foods - Constitutional Vitals: Temp Pulse Resp BP Pulse Ox 97.8 F 80 16 130/71 97 05/17/17 00:07 05/17/17 00:07 05/17/17 00:07 05/17/17 00:07 05/17/17 00:07 General appearance: Present: cooperative, mild distress, A&O X 3, pleasant - Head Head exam: Present: atraumatic, normal inspection - Eye Eye exam: Present: EOMI, normal appearance, PERRL. Absent: scleral icterus Pupils: Present: normal accommodation - ENT ENT exam: Present: mucous membranes dry, normal oropharynx Additional comments: nasal congestion but no discharge - Neck Neck exam general surgery: Present: full ROM, supple. Absent: tenderness - Respiratory Respiratory exam: Present: prolonged expiratory phase, rales, rhonchi, wheezes. Absent: accessory muscle use, chest wall tenderness, respiratory distress - Cardiovascular Cardiovascular exam: Present: RRR, +S1, +S2. Absent: diastolic murmur, systolic murmur - GI/Abdominal GI/Abdominal exam: Present: normal bowel sounds, soft. Absent: hepatomegaly, splenomegaly, tenderness - Extremities Exam Extremities exam: Present: full ROM, warm. Absent: calf tenderness, joint swelling, pedal edema - Back Exam Back exam: Absent: CVA tenderness (L), CVA tenderness (R) - Neurological Exam Neurological exam: Present: alert, CN II-XII intact, oriented X3, no focal deficits - Psychiatric Psychiatric exam: Present: normal affect, normal mood - Skin Skin exam: Present: dry, warm. Absent: rash Internal Med - H&P Results - Labs CBC & Chem 7: 05/16/17 18:00 05/17/17 00:47 Labs: BMP 05/17/17 00:47 Sodium 136 Potassium 4.5 D Chloride 106 Carbon Dioxide 19 BUN 15 Creatinine 0.85 Glucose 190 H Calcium 9.2 Liver Function 05/17/17 Range/Units 00:47 Total Bilirubin 0.4 (0.2-1.2) mg/dL AST 15 (5-34) Units/L ALT 15 (0-55) Units/L Alkaline Phosphatase 105 (38-126) Units/L Albumin 3.5 (3.5-5.0) g/dL - ABG Interpretation ABG results: 05/16/17 20:55 ABG pH 7.44 ABG pCO2 29 L ABG pO2 57 L ABG HCO3 20 L ABG Total CO2 21 ABG O2 Saturation 91 L ABG Base Excess -3 L - Diagnostic Studies Chest x-ray Status: image reviewed by me (negative) - Attending Attestation I discussed the patient CHILKOOT, PMH, ROS, lab data, and exam findings with Dr. Palmer. I then saw and examined patient independently as well. Work-up was negative in ER, including CTA chest, respiratory infection panel and CXR. Clinically, she appears to have an acute on chronic bronchitis episode. She does complain of exertional dyspnea. I will order an ECHO on her given the above symptoms. Once she recovers from her bronchitis, she will likely need a cardiac stress test. Other than my comments above and noted exam findings, I agree with Dr. Palmer's assessment and plan.
[2017-05-17] MEDS: Ipratropium/Albuterol Neb 3 ML IH SCH ×5 (03:43→22:57)
[2017-05-17] MEDS: *HR* Heparin 5,000 UNIT/ML VIAL SQ SCH ×3 (04:39→21:34)
[2017-05-17] MEDS: MethylPREDNISolone 40 MG/ML VIAL IVP SCH ×2 (04:39→16:06)
[2017-05-17] MEDS ORDERED: Ondansetron 4 MG/2 ML VIAL IVP PRN (05:34)
[2017-05-17] MEDS ORDERED: Ondansetron 4 MG/2 ML VIAL IVP SCH (06:00)
[2017-05-17] MEDS: levoFLOXacin 750 MG TABLET PO SCH (08:25)
--- NOTE | 2017-05-17 12:20 | Electrocardiograph Report ---
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
[2017-05-17] MEDS ORDERED: Saline Nasal Spray 44 ML BOTTLE NS PRN (14:07)
--- NOTE | 2017-05-17 16:21 | Event Note ---
Date of Encounter: 05/17/17 Time of Encounter: 16:13 Gael Gaviria is a 76-year-old female with past medical history arthritis and chronic bronchitis [facility] complaints of shortness of breath. She was found to be hypoxic and she was started on supplemental O2. She was admitted for further workup and treatment. 1. Acute hypoxic respiratory failure: with desaturation into the mid 80s while on room air. Does not wear oxygen at home. Chest x-ray unremarkable, chest CTA negative for pulmonary embolism. Secondary to acute URI. Continue treating underlying cause, continue breathing treatments, steroids. Wean oxygen as able. 2. Acute on chronic bronchitis: Has known history of chronic bronchitis. Now with productive cough and hypoxia. Chest x-ray and chest CTA nonacute however clinically appears to be pneumonia or acute URI. Continue IV Levaquin and steroids started in ED. Urinary antigens, respiratory PCR and sputum culture pending. 3. DVT prophylaxis: Heparin
[2017-05-17] MEDS: Albuterol 2.5 MG/3 ML NEBULIZER IH SCH ×3 (16:44→22:56)
[2017-05-17] MEDS: GuaiFENesin Liq 200 MG/10 ML UDC PO SCH (20:10)
[2017-05-18] MEDS: GuaiFENesin Liq 200 MG/10 ML UDC PO SCH ×4 (00:11→13:00)
[2017-05-18] MEDS ORDERED: GI Cocktail 40 ML EACH PO ONE (00:27)
[2017-05-18] MEDS: Albuterol 2.5 MG/3 ML NEBULIZER IH SCH ×3 (03:48→10:25)
[2017-05-18] MEDS: Ipratropium/Albuterol Neb 3 ML IH SCH ×2 (03:49→10:25)
[2017-05-18 04:14] LABS: Hematocrit 37.8 % (35.3-44.9); Hemoglobin 12.7 g/dL (11.5-15.4); Mean Corpuscular HGB Conc 33.6 g/dL (31.6-35.5); Mean Corpuscular Hemoglobin 30.2 pg (28.0-33.3); Mean Platelet Volume 11.7 fL (9.4-12.4); Platelet Count 274 K/mcL (140-400); Red Cell Distribution Width 13.6 % (11.5-14.5)
[2017-05-18 04:30] LABS: Alanine Aminotransferase 19 Units/L (0-55); Albumin 3.7 g/dL (3.5-5.0); Albumin/Globulin Ratio 0.9 (1.1-2.2); Alkaline Phosphatase 105 Units/L (38-126); Aspartate Amino Transferase 21 Units/L (5-34); BUN/Creatinine Ratio 19 (6-26); Bilirubin,Total 0.3 mg/dL (0.2-1.2); Blood Urea Nitrogen 16 mg/dL (7-20); Calcium 9.9 mg/dL (8.6-10.8); Carbon Dioxide 22 mEq/L (19-29); Chloride 108 mEq/L (98-109); Glucose 139 mg/dL (70-99); Osmolality,Calculated 293 (280-300); Potassium 4.2 mEq/L (3.5-4.5); Sodium 140 mEq/L (136-145); Total Protein 7.7 g/dL (6.0-8.3); eGFR For African Americans > 60 (> 60); eGFR For Non-African Americans > 60 (> 60)
[2017-05-18] MEDS: *HR* Heparin 5,000 UNIT/ML VIAL SQ SCH ×2 (05:27→13:01)
[2017-05-18] MEDS: MethylPREDNISolone 40 MG/ML VIAL IVP SCH (05:28)
[2017-05-18] MEDS: levoFLOXacin 750 MG TABLET PO SCH (07:54)
[2017-05-18 10:53] VITALS: BP 166/66
--- NOTE | 2017-05-18 13:50 | Discharge Summary ---
Date of Encounter: 05/18/17 Time of Encounter: 13:40 - Discharge Diagnosis (1) Bronchitis Priority: Primary Status: Acute Comments: Gael Gaviria is a 76-year-old female with past medical history arthritis and chronic bronchitis [facility] of shortness of breath. She was found to be hypoxic and she was started on supplemental O2. She was admitted for further workup and treatment. Her sx's improved with IV ATBs, steroids and breathing treatments. She was discharged home in stable condition with outpatient follow-up. 1. Acute hypoxic respiratory failure: with desaturation into the mid 80s while on room air. Does not wear oxygen at home. Chest x-ray unremarkable, chest CTA negative for pulmonary embolism. Secondary to acute URI. Improved with treating URI. She was discharged home without requiring oxygen. 2. Acute on chronic bronchitis: Has known history of chronic bronchitis. Presented with productive cough and hypoxia. Chest x-ray and chest CTA nonacute however clinically appears to be acute URI. Received 2 doses IV Levaquin. Discharge home with PO Levaquin (to complete total 7 days) and steroid burst. Follow-up with PCP within 1-2 weeks. - Discharge Medications Prescriptions: Levofloxacin [Levaquin] 750 mg PO DAILY #5 tablet PredniSONE [Deltasone] 40 mg PO DAILY #10 tablet Home Medications: Pantoprazole Sodium [Protonix] 40 mg PO HS 08/15/16 [History] Gabapentin [Neurontin] 300 mg PO TID 05/16/17 [History] Levofloxacin [Levaquin] 750 mg PO DAILY #5 tablet 05/18/17 [Rx] PredniSONE [Deltasone] 40 mg PO DAILY #10 tablet 05/18/17 [Rx] Allergies/Adverse Reactions: 3 Allergy/AdvReac Type Severity Reaction Status Date / Time No Known Allergies Allergy Verified 05/16/17 16:35 Date of admission: 05/17/17 14:07 Primary care physician: Keyon Hanks Jr, MD Discharging clinician: Harriet Price Anticipated date of discharge: 05/18/17 - Patient Status Disposition: Home, Self-Care Condition: Good Functional capacity at discharge: independent ambulation Overall status at discharge: patient is progressing back to baseline - Discharge Instructions Follow Up With: Keyon Hanks Jr, MD [Primary Care Provider] - - Diet and Activity Activity: ambulate only with your walker, resume usual activities as tolerated Diet: advance to your usual diet Interval History: Seen and examined at bedside; says she feels better and wants to go home. Still a little SOB with exertion but says much better. Cough improved. Related with patient in the hallway on room air and O2 saturations maintained between 96-97% Hospital course: See assessment and plan for hospital course - Time Spent with Patient Total time spent providing and/or coordinating discharge services: Greater than 30 minutes (38 min spent on discharge) - Constitutional Vitals: Temp Pulse Resp BP Pulse Ox 97.6 F 107 16 166/66 95 05/18/17 10:50 05/18/17 10:50 05/18/17 10:50 05/18/17 10:50 05/18/17 10:50 General appearance: Present: cooperative, A&O X 3, pleasant, no acute distress - Head Head exam: Present: atraumatic, normocephalic - Eye Eye exam: Present: PERRL, conjuntiva pink, sclera anicteric Pupils: Present: PERRL - Neck Neck exam general surgery: Present: supple, trachea midline. Absent: lymphadenopathy - Respiratory Respiratory exam: Present: CTAB. Absent: accessory muscle use, rales, rhonchi, wheezes - Cardiovascular Cardiovascular exam: Present: RRR, +S1, +S2. Absent: diastolic murmur, gallop, rubs, systolic murmur - GI/Abdominal GI/Abdominal exam: Present: normal bowel sounds, soft, no peritoneal signs. Absent: distended, tenderness - Extremities Exam Extremities exam: Present: warm, radial pulses palpable and symmetrical. Absent : calf tenderness, cyanotic, pedal edema - Neurological Exam Neurological exam: Present: CN II-XII intact, oriented X3, no focal deficits. Absent: pronater drift, facial droop, speech deficit - Skin Skin exam: Present: dry, intact
== END 2017-05-18 15:18 | disposition home or self-care (01) | DRG 202 ==
LOC: EMEROO 16:29 → 3BNU 16:29
PROVIDERS: ADMIT Family Medicine; ATTEND Registered Nurse

== ENCOUNTER 2021-10-12 21:01 | Observation (INO) ==
[2021-10-12] MEDS ORDERED: Isovue-370 500 ML BOTTLE IVP ONE (21:20)
[2021-10-12] MEDS ORDERED: *HR* Labetalol 20 MG/4 ML SYRINGE IVP ONE (21:20)
[2021-10-12 21:38] LABS: Basophils # 0.1 K/mcL (0.0-0.2); Basophils % 0.3 %; Eosinophils # 0.1 K/mcL (0.0-0.6); Eosinophils % 0.8 %; Hematocrit 39.1 % (35.3-44.9); Hemoglobin 13.1 g/dL (11.5-15.4); Immature Granulocytes % 0.3 % (0-4); Lymphocytes % 13.5 %; Mean Corpuscular HGB Conc 33.5 g/dL (31.6-35.5); Mean Corpuscular Hemoglobin 30.8 pg (28.0-33.3); Mean Corpuscular Volume 91.8 fL (83.0-100.0); Mean Platelet Volume 12.8 fL (9.4-12.4); Monocytes % 6.3 %; Neutrophils # 11.9 K/mcL (1.6-8.9); Platelet Count 216 K/mcL (140-400); Red Blood Count 4.26 M/mcL (3.82-4.97); Red Cell Distribution Width 13.8 % (11.5-14.5); Segmented Neutrophils % 78.8 %; White Blood Count 15.1 K/mcL (4.3-11.1)
[2021-10-12 21:46] LABS: Prothrombin Time 11.5 Seconds (9.4-12.1)
[2021-10-12 21:49] LABS: Activated Partial Thrombo Time 27.5 Seconds (26.0-36.0)
[2021-10-12 21:59] LABS: Alanine Aminotransferase 10 Units/L (7-52); Albumin 4.1 g/dL (3.5-5.7); Albumin/Globulin Ratio 1.5 (1.1-2.2); Alkaline Phosphatase 70 Units/L (34-104); Aspartate Amino Transferase 13 Units/L (13-39); BUN/Creatinine Ratio 28 (6-26); Bilirubin,Direct 0.1 mg/dL (0.0-0.2); Bilirubin,Indirect 0.2 mg/dL (0.0-1.0); Bilirubin,Total 0.3 mg/dL (0.3-1.0); Blood Urea Nitrogen 24 mg/dL (8-23); Calcium 8.9 mg/dL (8.6-10.3); Carbon Dioxide 22 mEq/L (23-29); Chloride 105 mEq/L (98-107); Globulin 2.8 g/dL (2.4-3.5); Glucose 103 mg/dL (70-105); Lipase 36 Units/L (11-82); Osmolality,Calculated 288 (280-300); Potassium 4.1 mEq/L (3.5-5.1); Sodium 137 mEq/L (136-145); Total Protein 6.9 g/dL (6.4-8.9); Troponin I < 0.03 ng/mL (< 0.04); eGFR For African Americans > 60 (> 60); eGFR For Non-African Americans > 60 (> 60)
[2021-10-12] MEDS: Nitroglycerin 0.4 MG TAB.SUBL SL SCH ×3 (23:15→23:27)
[2021-10-13] MEDS ORDERED: Ondansetron 4 MG/2 ML VIAL IVP PRN (01:09)
[2021-10-13] MEDS ORDERED: Naloxone 0.4 MG/ML INJ IVP PRN (01:09)
[2021-10-13] MEDS ORDERED: Morphine Sulfate 2 MG/ML SYRINGE IVP PRN (01:10)
[2021-10-13] MEDS ORDERED: GI Cocktail 40 ML EACH PO ONE (02:47)
[2021-10-13 02:58] LABS: Basophils % 0.2 %; Eosinophils % 0.1 %; Hematocrit 36.9 % (35.3-44.9); Hemoglobin 11.9 g/dL (11.5-15.4); Immature Granulocytes % 0.3 % (0-4); Lymphocytes # 1.1 K/mcL (0.6-4.6); Lymphocytes % 8.2 %; Mean Corpuscular HGB Conc 32.2 g/dL (31.6-35.5); Mean Corpuscular Hemoglobin 30.2 pg (28.0-33.3); Mean Corpuscular Volume 93.7 fL (83.0-100.0); Mean Platelet Volume 12.9 fL (9.4-12.4); Monocytes # 0.8 K/mcL (0.0-1.3); Monocytes % 5.7 %; Neutrophils # 11.6 K/mcL (1.6-8.9); Platelet Count 191 K/mcL (140-400); Red Blood Count 3.94 M/mcL (3.82-4.97); Red Cell Distribution Width 13.7 % (11.5-14.5); Segmented Neutrophils % 85.5 %; White Blood Count 13.6 K/mcL (4.3-11.1)
[2021-10-13 03:25] LABS: Troponin I 0.05 ng/mL (< 0.04)
[2021-10-13 03:36] LABS: Alanine Aminotransferase 9 Units/L (7-52); Albumin 3.8 g/dL (3.5-5.7); Albumin/Globulin Ratio 1.5 (1.1-2.2); Alkaline Phosphatase 60 Units/L (34-104); Aspartate Amino Transferase 11 Units/L (13-39); BUN/Creatinine Ratio 24 (6-26); Bilirubin,Total 0.4 mg/dL (0.3-1.0); Blood Urea Nitrogen 21 mg/dL (8-23); Calcium 8.8 mg/dL (8.6-10.3); Carbon Dioxide 19 mEq/L (23-29); Chloride 106 mEq/L (98-107); Globulin 2.6 g/dL (2.4-3.5); Glucose 126 mg/dL (70-105); Osmolality,Calculated 289 (280-300); Phosphorous 3.8 mg/dL (2.7-4.5); Sodium 137 mEq/L (136-145); Total Protein 6.4 g/dL (6.4-8.9); eGFR For African Americans > 60 (> 60); eGFR For Non-African Americans > 60 (> 60)
[2021-10-13] MEDS ORDERED: Pantoprazole 40 MG VIAL IVP SCH (06:00)
[2021-10-13] MEDS ORDERED: *HR* Heparin 5,000 UNIT/ML VIAL IVP ONE ×2 (06:22→10:00)
[2021-10-13] MEDS ORDERED: *HR* Heparin 5,000 UNIT/ML VIAL IVP PRN ×4 (06:22→09:47)
[2021-10-13 06:29] LABS: Heparin anti-factor XA UFH < 0.04 IU/mL (0.30-0.70); INR 1.1; Prothrombin Time 12.3 Seconds (9.4-12.1)
[2021-10-13] MEDS ORDERED: Heparin 25,000UNIT/250ML 1/2NS 25,000 UNIT/250 ML IV.SOLN IVC SCH ×2 (06:30→10:00)
[2021-10-13] MEDS ORDERED: Perflutren Lipid Microsphere 1.3 ML in 0.9 % Sodium Chloride 8.7 ML IVP PRN (08:45)
[2021-10-13] MEDS: Aspirin Enteric Coated 81 MG Tablet PO SCH (10:33)
[2021-10-13] MEDS ORDERED: *HR* Midazolam HCl 2 MG/2 ML VIAL ONE (11:06)
[2021-10-13] MEDS ORDERED: *HR* FentaNYL (PF) 100 MCG/2 ML VIAL ONE (11:06)
[2021-10-13] MEDS ORDERED: *HR* Heparin 10,000 UNIT/10 ML VIAL ONE (11:07)
[2021-10-13] MEDS ORDERED: ISOVUE-370 200 ML INFUS..BTL ONE (11:07)
[2021-10-13] MEDS ORDERED: Nitroglycerin 1,000 MCG/5 ML VIAL IV ONE (11:07)
[2021-10-13] MEDS ORDERED: Heparin 1,000 UNITS/500 mL 500 ML ONE (11:07)
[2021-10-13] MEDS ORDERED: 0.9 % Sodium Chloride 1,000 ML ONE (11:07)
[2021-10-13 14:30] LABS: Adenovirus Not Detected (Not Detect); Bordetella Pertussis Not Detected (Not Detect); Chlamydophila pneumoniae Not Detected (Not Detect); Coronavirus 229E Not Detected (Not Detect); Coronavirus HKU1 Not Detected (Not Detect); Coronavirus NL63 Not Detected (Not Detect); Coronavirus OC43 Not Detected (Not Detect); Human Metapneumovirus Not Detected (Not Detect); Human Rhinovirus/Enterovirus Not Detected (Not Detect); Influenza A Subtype 2009 H1 Not Detected (Not Detect); Influenza B Not Detected (Not Detect); Mycoplasma pneumoniae Not Detected (Not Detect); Parainfluenza Virus 1 Not Detected (Not Detect); Parainfluenza Virus 2 Not Detected (Not Detect); Parainfluenza Virus 3 Not Detected (Not Detect); Parainfluenza Virus 4 Not Detected (Not Detect); Respiratory Syncytial Virus Not Detected (Not Detect); SARS-CoV-2 Not Detected (Not Detect)
[2021-10-13] MEDS: Ibuprofen 600 MG TABLET PO SCH ×2 (15:30→23:39)
[2021-10-13] MEDS: Colchicine 0.6 MG TABLET PO SCH (21:11)
[2021-10-14 02:49] LABS: Hematocrit 34.2 % (35.3-44.9); Hemoglobin 11.2 g/dL (11.5-15.4); Mean Corpuscular HGB Conc 32.7 g/dL (31.6-35.5); Mean Corpuscular Hemoglobin 30.9 pg (28.0-33.3); Mean Corpuscular Volume 94.2 fL (83.0-100.0); Platelet Count 177 K/mcL (140-400); Red Blood Count 3.63 M/mcL (3.82-4.97); Red Cell Distribution Width 14.2 % (11.5-14.5); White Blood Count 8.6 K/mcL (4.3-11.1)
[2021-10-14 03:13] LABS: Alanine Aminotransferase 9 Units/L (7-52); Albumin 3.4 g/dL (3.5-5.7); Albumin/Globulin Ratio 1.3 (1.1-2.2); Alkaline Phosphatase 60 Units/L (34-104); Aspartate Amino Transferase 10 Units/L (13-39); BUN/Creatinine Ratio 20 (6-26); Bilirubin,Total 0.9 mg/dL (0.3-1.0); Blood Urea Nitrogen 17 mg/dL (8-23); Calcium 8.7 mg/dL (8.6-10.3); Carbon Dioxide 23 mEq/L (23-29); Chloride 104 mEq/L (98-107); Globulin 2.6 g/dL (2.4-3.5); Glucose 101 mg/dL (70-105); Osmolality,Calculated 284 (280-300); Potassium 4.1 mEq/L (3.5-5.1); Sodium 136 mEq/L (136-145); eGFR For African Americans > 60 (> 60); eGFR For Non-African Americans > 60 (> 60)
[2021-10-14] MEDS ORDERED: *HR* Labetalol 20 MG/4 ML SYRINGE IVP ONE (05:08)
[2021-10-14] MEDS ORDERED: *HR* Enoxaparin 40 MG/0.4 ML SYRINGE SQ SCH (06:00)
[2021-10-14] MEDS: Ibuprofen 600 MG TABLET PO SCH (07:42)
[2021-10-14] MEDS: Aspirin Enteric Coated 81 MG Tablet PO SCH (07:42)
[2021-10-14] MEDS: Colchicine 0.6 MG TABLET PO SCH (07:43)
[2021-10-14 14:51] VITALS: BP 120/57; PULSE 61; TEMP 98.2; O2SAT 95
== END 2021-10-14 15:18 | disposition home or self-care (01) ==
LOC: EMEROOARM 21:01 → 3BNU 21:01 → SUATTDRO 23:55 → 3BNU 10-13
PROVIDERS: ADMIT Internal Medicine; ATTEND Registered Nurse